=== PATIENT | male | born 1990 | race Hispanic/Latino ===

== ENCOUNTER 2020-01-13 21:17 | Emergency (ER) | payer OTHER ==
[~2020-01-13] VITALS: Ht 170.2 cm; Wt 74.5 kg
[2020-01-13 21:18] VITALS: BP 123/81
[2020-01-13] MEDS ORDERED: AUGM875T28 PO (22:45)
== END 2020-01-13 22:50 | disposition home or self-care (01) ==
LOC: M ED 21:17
DX: S61.203D Unspecified open wound of left middle finger without damage to nail, subsequent encounter (principal); L08.9 Local infection of the skin and subcutaneous tissue, unspecified; W31.2XXD Contact with powered woodworking and forming machines, subsequent encounter; Y92.9 Unspecified place or not applicable; Y93.9 Activity, unspecified; Y99.9 Unspecified external cause status

== ENCOUNTER 2021-11-15 11:48 | Emergency (ER) | payer OTHER ==
[~2021-11-15] VITALS: Ht 170.2 cm; Wt 80.1 kg
[~2021-11-15 11:48] MED LIST: AUGM875T28 PO
[2021-11-15] MEDS ORDERED: METH4PACK (12:09)
[2021-11-15] MEDS ORDERED: METH-1164 (12:09)
[2021-11-15 18:11] VITALS: BP 140/88
== END 2021-11-15 18:12 | disposition home or self-care (01) ==
LOC: EDBD 11:48 → M ED 11:48
DX: R55 Syncope and collapse (principal); R20.2 Paresthesia of skin; M54.50 Low back pain, unspecified; Z88.1 Allergy status to other antibiotic agents; Z88.5 Allergy status to narcotic agent; Z79.52 Long term (current) use of systemic steroids; Z79.891 Long term (current) use of opiate analgesic